=== PATIENT | male | born 1995 | race Caucasian/White ===

== ENCOUNTER 2017-10-17 15:44 | Day surgery (SDC) | payer OTHER ==
[~2017-10-17] VITALS: Ht 193 cm; Wt 100.0 kg
--- NOTE | ~2017-10-17 | OP ---
PATIENT NAME: CHELSEY DEL ROSARIO MEDICAL RECORD: [id number] LOCATION:[facility] ADMISSION DATE: SURGEON: NOEMI GARIBAY MD DATE OF OPERATION: 10/17/2017 PROCEDURE: EGD with biopsy. CUT ORDER HAND: Noemi Garibay MD SCOPE: Olympus video gastroscope. MEDICATIONS: Per TIVA anesthesia. The patient received 140 mg of propofol for this procedure, O2 4 liters. INDICATION FOR THE PROCEDURE: Nausea, vomiting, and epigastric discomfort and symptoms of gastroesophageal reflux disease. FINDINGS: Informed consent was given. The patient was made comfortable with the above medications. After reaching an adequate level of sedation by slow IV push, the patient was placed on his left side. The endoscope was then advanced under direct visualization through the posterior pharyngeal area and advanced to the distal esophagus. In this area, [id number] erosive esophagitis was appreciated and biopsies were obtained. On entering the stomach, only mild inflammation was seen throughout the entire gastric mucosa. A biopsy was taken at the antral area looking for the presence of Helicobacter pylori and for histopathology. In advancing to the duodenal bulb, two small ulcerations were appreciated. These did not have visible vessels and were not actively bleeding; however, there was erythema and some edema in this area. Biopsies were obtained of the ulcer surround. The duodenal second portion had mild inflammation present and biopsies were taken. The scope was then withdrawn. IMPRESSION: 1. [id number]-elgjhqxe erosive esophagitis, biopsied. 2. Mild gastritis, biopsy taken at the antral area. 3. Duodenal bulbar ulcers times 2 without visible vessels, not actively hemorrhaging. Biopsies taken of the ulcer surround. 4. Mild duodenitis in the second portion of the duodenum, biopsied. PLAN: 1. We will start the patient on omeprazole at a dose of 20 mg p.o. q.a.m. and famotidine 20 mg p.o. at bedtime. 2. Caution with anti-inflammatory drugs. 3. The patient to follow reflux precautions stringently, both dietary and positional. No chocolate, tomato, citrus, caffeine, fatty foods, peppermint. No tobacco, no alcohol. The patient should not eat late at night and sit up for a couple hours after every meal. Return to clinic on a p.r.n. basis. TRANSINT:[id number] Voice Confirmation ID: [id number] DOCUMENT ID: [id number] OPERATIVE REPORT [id number] CHELSEY DEL ROSARIO BRENDA MD CC: [id number] DICTATION DATE: 10/17/17 1332 [employer] WORKER: 10/17/17 1650 [facility] 10/17/17 [place] [id number] [place] [id number]
[2017-10-17 12:27] VITALS: Ht 193 cm; Wt 100.0 kg
[~2017-10-17 15:44] MED LIST: ACETAMINOPHEN500 M1 PO; CYCLOBENZAPRINE10 MG PO
== END 2017-10-17 15:45 | disposition home or self-care (01) ==
LOC: D.OPS 15:44
DX: K22.10 Ulcer of esophagus without bleeding (principal); K21.0 Gastro-esophageal reflux disease with esophagitis; K29.70 Gastritis, unspecified, without bleeding; K26.9 Duodenal ulcer, unspecified as acute or chronic, without hemorrhage or perforation; K29.80 Duodenitis without bleeding; Z01.812 Encounter for preprocedural laboratory examination